=== PATIENT | male | born 1990 | race Caucasian/White ===

== ENCOUNTER 2023-09-27 00:13 | Emergency (ER) | payer BC, MEDICAID ==
[2023-09-27] MEDS ORDERED: Ondansetron ODT 4 MG TAB ONE (00:22)
== END 2023-09-27 00:44 | disposition home or self-care (01) ==
LOC: MADERS 00:13
DX: R11.0 Nausea (principal); F17.220 Nicotine dependence, chewing tobacco, uncomplicated; F17.210 Nicotine dependence, cigarettes, uncomplicated
CPT/HCPCS: 99283; Q0162